=== PATIENT | female | born 1935 ===

== ENCOUNTER 2016-12-30 18:49 | Emergency (ER) | payer MEDICARE ==
[2016-12-30] MEDS ORDERED: ONDANSETRON HCL IV 4 MG/2 ML VIAL IVP ONE (19:20)
[2016-12-30] MEDS ORDERED: 0.9 % SODIUM CHLORIDE 1000ML 1,000 ML IV SCH (19:30)
--- NOTE | 2016-12-30 19:40 | Emergency Department Record ---
History of Present Illness - General Chief Complaint: Abdominal Pain Stated Complaint: ABD PAIN Time Seen by Provider: 12/30/16 19:19 Source: Patient Mode of Arrival: Ambulatory Limitations: No limitations - History of Present Illness Initial Comments: 81 yo female presents to ED with a CC of "sharp" abdominal pain symptoms that began approximately 1 hour [employer]. Patient reports a previous history of pancreatitis, tonights symptoms were similar to previous. Patient denies nausea or vomiting, denies fevers, chills, or recent illness. Patient reports that her pain symptoms are improved from the onset of symptoms. Patient does report distension on examination. Patient is s/p appy, yazmin, and ELKE. MD Complaint: Abdominal pain Onset/Timin -: Minutes(s) Location: Bilateral flank, Diffuse, Periumbilical Migration to: Other Severity: Mild Quality: Aching, Other Consistency: Constant Improves With: Nothing Worsens With: Nothing Associated Symptoms: Nausea - Related Data Patient : No Home Medications Medication Instructions Recorded Confirmed Last Taken Bimatoprost [Lumigan] 1 drop EACH EYE DAILY 10/11/14 12/30/16 12/30/16 Calcium Carb & Citrate/Vit D3 1 each PO DAILY 10/11/14 12/30/16 12/30/16 [Citracal + D ER Tablet] Exemestane 25 mg PO DAILY 10/11/14 12/30/16 12/30/16 Lisinopril 5 mg PO DAILY 10/11/14 12/30/16 12/29/16 Loteprednol Etabonate [Lotemax] 1 drop EACH EYE DAILY 10/11/14 12/30/16 12/30/16 Psyllium Husk/Aspartame [Metamucil 1,040 gm PO DAILY 10/11/14 12/30/16 12/30/16 Powder] Timolol [Betimol] 1 drop EACH EYE DAILY 10/11/14 12/30/16 12/30/16 Bimatoprost [Lumigan] 1 drop OP DAILY 04/21/15 12/30/16 12/30/16 Gluc/Mark-MSM#1/C/Jax/Herman/Bor 1 tab PO DAILY 04/21/15 12/30/16 12/30/16 [Osteo Bi-Flex] Albuterol Sulfate [Proair Hfa] 1 - 2 puff IH .EVERY 4-6 HOURS PRN 12/30/1612/30 Unknown Allergies Allergy/AdvReac Type Severity Reaction Status Date / Time acetaminophen [From Vicodin] Allergy VOMITING Verified 10/07/15 14:41 hydrocodone bitartrate Allergy VOMITING Verified 10/07/15 14:41 [From Vicodin] Penicillins Allergy SWELLING Verified 10/07/15 14:41 (GENERAL) Sulfa (Sulfonamide Allergy RASH Verified 10/07/15 14:41 Antibiotics) Travel Screening - Travel/Exposure Within Last 30 Days Have you traveled within the last 30 days?: No - Travel/Exposure Within Last Year Have you traveled outside the [place] in the last year?: No - Additonal Travel Details Have you been exposed to anyone with a communicable illness?: No - Travel Symptoms Symptom Screening: None Review of Systems Constitutional: Denies: Chills, Fever, Malaise, Night sweats Eyes: Denies: Eye discharge, Eye pain ENT: Denies: Congestion, Ear pain, Epistaxis Respiratory: Denies: Cough, Dyspnea Cardiovascular: Denies: Chest pain, Dyspnea on exertion Endocrine: Denies: Fatigue, Heat or cold intolerance Gastrointestinal: Reports: Abdominal pain. Denies: Constipation, Nausea, Vomiting Genitourinary: Denies: Dysuria, Frequency, Hematuria, Incontinence Musculoskeletal: Denies: Arthralgia, Back pain, Gout, Joint swelling Skin: Denies: Bruising, Change in color Neurological: Denies: Abnormal gait, Confusion, Headache, Tingling, Tremors Psychiatric: Denies: Anxiety Hematological/Lymphatic: Denies: Anemia, Blood Clots Past Medical History - SOCIAL HISTORY Smoking Status: Never smoker Alcohol Use: None Drug Use: None - RESPIRATORY Hx Respiratory Disorders: Yes Hx Asthma: Yes - CARDIOVASCULAR Hx Cardio Disorders: Yes Hx Hypotension: Yes - NEURO Hx Neuro Disorders: No - GI Hx GI Disorders: Yes Hx Reflux: Yes Hx Pancreatitis: Yes Hx of Polyps: Yes Comment:: multiple ERCP - Hx Genitourinary Disorders: Yes Hx Bladder Problem: Yes Comment:: bladder suspensioin - ENDOCRINE Hx Endocrine Disorders: No Hx Diabetes: No Hx Thyroid Disease: No - MUSCULOSKELETAL Hx Musculoskeletal Disorders: Yes Hx Arthritis: Yes - PSYCH Hx Psych Problems: No - HEMATOLOGY/ONCOLOGY Hx Hematology/Oncology Disorders: Yes Hx Cancer: Yes (Rt lumpectomy) Family Medical History Any Significant Family History?: No Hx Heart Disease: Mother Physical Exam - General General Appearance: Alert, Oriented x3, Cooperative, Mild distress Limitations: No limitations - Head Head exam: Atraumatic, Normocephalic, Normal inspection Head exam detail: negative: Abrasion, Contusion, Mojica's sign, General tenderness, Hematoma, Laceration - Eye Eye exam: Normal appearance. negative: Conjunctival injection, Periorbital swelling, Periorbital tenderness, Scleral icterus - ENT Ear exam: negative: Auricular hematoma, Auricular trauma Nasal Exam: negative: Active bleeding, Discharge, Dried blood, Foreign body Mouth exam: negative: Drooling, Laceration, Muffled voice, Tongue elevation - Neck Neck exam: Normal inspection. negative: Meningismus, Tenderness - Respiratory Respiratory exam: Normal lung sounds bilaterally. negative: Respiratory distress, Rhonchi, Stridor, Wheezes - Cardiovascular Cardiovascular Exam: Regular rate, Normal rhythm, Normal heart sounds - GI/Abdominal GI/Abdominal exam: Soft, Distended, Other (Abdominal examiantion is benign at this time without pain with palpation.). negative: Rebound, Rigid, Tenderness - Rectal Rectal exam: Deferred - exam: Deferred - Extremities Extremities exam: Normal inspection. negative: Calf tenderness, Pedal edema, Tenderness - Back Back exam: Denies: CVA tenderness (R), CVA tenderness (L) - Neurological Neurological exam: Alert, Normal gait, Oriented X3 - Psychiatric Psychiatric exam: Normal affect, Normal mood - Skin Skin exam: Normal color. negative: Abrasion Type of lesion: negative: abrasion Course Vital Signs 12/30/16 18:54 Temperature 97.5 F L Pulse Rate 90 Respiratory 18 Rate Blood Pressure 162/116 Pulse Ox 96 - Reevaluation(s) Reevaluation #1: 12/30/16 20:26 Labs reviewed, AST 212, ALT 108, Alk phos 162, and Lipase is 379. Labs are otherwise grossly unremarkable for an acute process. Reevaluation #2: 12/30/16 21:03 Patient is back from CT, awaiting results, resting comfortably and reports that her pain has not returned. Reevaluation #3: 12/30/16 21:14 CT Abdomen and Pelvis: Stable chronic changes, diverticula without diverticulitis, chronic liver hemangioma. Patient reassessed, reports that she is feeling well at this time. Patient is asking to go at this time, and was counseled that her pain may return/worsen if her pancreatitis worsens. Patient was advised to follow a liquid diet for 24- 36 hours before gradually returning to solid diet. Patient declined analgesia or anti-emetics to go home with. Patient appears stable for discharge at this time. Medical Decision Making - Lab Data Result diagrams: 12/30/16 19:20 12/30/16 19:20 Disposition Disposition: Discharge Clinical Impression: Abdominal pain Qualifiers: Abdominal location: generalized Qualified Code(s): R10.84 - Generalized abdominal pain Acute pancreatitis Qualifiers: Pancreatitis type: unspecified pancreatitis type Acute pancreatitis complication: no infection or necrosis Qualified Code(s): K85.90 - Acute pancreatitis without necrosis or infection, unspecified Disposition: Home, Self-Care Condition: (2) Stable Instructions: Pancreatitis (ED) Additional Instructions: Return to ED if your symptoms worsen or if you have any concerns. Follow-up with your family doctor in 3-5 days as directed. Follow-up with your family doctor for further evaluation with abdominal US of your liver and kidney lesions in 1-2 months. Forms: Patient Portal Access Time of Disposition: 21:21
[2016-12-30 20:06] LABS: BASO % 0.3 % (0-6); EOS % 4.5 % (0-6); GRAN % 63.6 % (47-80); HEMATOCRIT 43.7 % (35.0-47.0); HEMOGLOBIN 14.6 gm/dl (11.6-16.0); MEAN CELL VOLUME 88.3 fl (81-97); MEAN CORPUSCULAR HEMOGLOBIN 29.5 pg (27-33); MEAN CORPUSCULAR HGB CONC 33.4 g/dl (32-36); MEAN PLATELET VOLUME 11.2 fl (7.4-10.4); MONO % 10.6 % (0-9); PLATELET COUNT 263 K/uL (130-400); RED BLOOD COUNT 4.95 M/uL (3.80-5.40); RED CELL DISTRIBUTION WIDTH 13.8 % (11.5-14.5); WHITE BLOOD COUNT W/O DIFF 5.8 K/uL (4.2-12.2)
[2016-12-30 20:16] LABS: ALB/GLOB RATIO 1.5 (1.1-1.8); ALBUMIN 4.3 gm/dL (3.5-5.0); ALKALINE PHOSPHATASE 162 U/L (38-126); ALT/SGPT 108 U/L (9-52); ANION GAP 8.6 (7-16); AST/SGOT 212 U/L (14-36); BILIRUBIN,TOTAL 0.65 mg/dL (0.2-1.3); BLOOD UREA NITROGEN 19 mg/dL (7-17); CARBON DIOXIDE 29.4 mmol/L (22-30); CREATININE 0.7 mg/dL (0.52-1.04); EST GLOMERULAR FILTRATION RATE > 60 ml/min; GLUCOSE,RANDOM 128 mg/dL (70-110); LIPASE 379 U/L (23-300); TOTAL PROTEIN 7.2 gm/dL (6.3-8.2)
[2016-12-30 20:58] LABS: URINE APPEARANCE CLEAR; URINE BILIRUBIN NEGATIVE (NEGATIVE); URINE BLOOD NEGATIVE (NEGATIVE); URINE COLOR YELLOW; URINE GLUCOSE (UA) NEGATIVE (NEGATIVE); URINE KETONE NEGATIVE (NEGATIVE); URINE LEUKOCYTE ESTERASE NEGATIVE (NEGATIVE); URINE NITRITE NEGATIVE (NEGATIVE); URINE PROTEIN NEGATIVE (NEGATIVE); URINE UROBILINOGEN 0.2 E.U./dL (0.20 - 1.00)
--- NOTE | 2017-01-03 11:21 | CT SCAN REPORT ---
EXAM: CT SCAN OF THE ABDOMEN AND PELVIS WITH CONTRAST HISTORY: PATIENT HAS SEVERE MID ABDOMINAL PAIN. TECHNIQUE: Serial axial CT scan of the abdomen and pelvis was performed at 3.75 mm intervals from the dome of the diaphragm down to the pubic symphysis following the intravenous administration of 100 ml of Omnipaque 300. Comparison: CT scan of the abdomen and pelvis dated 10/07/15 is provided. FINDINGS: The lung windows of the lung bases demonstrate linear scarring at the bilateral lung bases. These findings appear similar to the prior CT scan. The visualized heart size and contour demonstrates moderate cardiomegaly. This finding is also unchanged. The liver demonstrates pneumobilia. This finding is unchanged with respect to the prior CT scan. There is a 3.6 cm right hepatic lobe hemangioma which is slightly larger than on the prior CT scan. The spleen, pancreas, and bilateral adrenal glands are unremarkable. Cholecystectomy clips are identified within the right upper quadrant of the abdomen. There is no CT evidence of hydronephrosis or hydroureter. Numerous bilateral renal cysts are stable with respect to the prior CT scan. The contour, caliber, and flow within the abdominal aorta is within normal limits. There is no CT evidence of retroperitoneal, pelvic, or inguinal lymphadenopathy. The visualized bowel gas pattern is nonspecific and nonobstructive. Numerous colonic diverticula are noted without CT evidence of diverticulitis. The urinary bladder is somewhat distended, but otherwise unremarkable. The uterus is absent. The bone windows demonstrate no CT evidence of a fracture or dislocation of the lumbar spine. Multilevel degenerative disk disease of the lumbar spine is again noted. IMPRESSION: 1. MILD INCREASE IN THE SIZE OF THE INFERIOR RIGHT HEPATIC LOBE HEMANGIOMA. 2. NO CHANGE IN THE HEPATIC PNEUMOBILIA. THIS FINDING IS LIKELY RELATED TO THE POST CHOLECYSTECTOMY CHANGES. 3. STABLE CT APPEARANCE OF THE BILATERAL RENAL CYSTS. 4. NUMEROUS COLONIC DIVERTICULA WITHOUT CT EVIDENCE OF DIVERTICULITIS. 5. NO CT EVIDENCE OF AN ACUTE INTRAABDOMINAL PROCESS. JOB NUMBER: [id number] [facility]
== END 2016-12-30 21:29 | disposition home or self-care (01) ==
LOC: ER 18:49
DX: K85.90 Acute pancreatitis without necrosis or infection, unspecified (principal); R10.84 Generalized abdominal pain; R11.0 Nausea
CPT/HCPCS: 99284 ×2; 96374; 83690; 85025; 80053; 81003; 74177; Q9967; J2405; J7030